=== PATIENT | female | born 1995 | race Caucasian/White ===

== ENCOUNTER 2016-09-02 10:33 | Day surgery (SDC) | payer OTHER ==
[2016-09-02 12:12] VITALS: BMI 30.2
[2016-09-02] MEDS ORDERED: PROPOFOL 20 ML ONE (13:00)
[2016-09-02] MEDS ORDERED: LIDOCAINE HCL 2% (20ML MULTI-DOSE VIAL) NR ONE (13:00)
[2016-09-02 13:37] VITALS: TEMP 97.6
[2016-09-02 15:05] VITALS: BP 123/66; PULSE 82
--- NOTE | 2016-09-03 13:53 | PATH ---
Surgical Pathology Report Patient Name: AJAY DUMONT [facility]. Rec. #: [id number] /Age/Gender: 1995 (Age: 21) / F Account: [id number] Location: [facility]-ENDOSCOPY Taken: 09/02/2016 Received: 09/02/2016 Reported: 09/03/2016 Physicians: Natanael Crawford M.D. Specimen(s) Received A: BX DUODENUM B: BX PYLORIC ULCER C: BX BODY ERYTHEMA D: BX GE JUNCTION Clinical History Epigastric pain Gastric ulcer, irregular Z-line, r/o celiac Final Diagnosis A. DUODENUM, BIOPSY: DUODENAL MUCOSA WITH CHRONIC INFLAMMATION AND FOCAL DIMPLE'S GLANDS HYPERPLASIA. NO HISTOLOGIC EVIDENCE OF GLUTEN SENSITIVE ENTEROPATHY (CELIAC DISEASE). B. STOMACH, PYLORIC ULCER, BIOPSY: GASTRIC ANTRAL MUCOSA WITH MODERATE CHRONIC GASTRITIS AND REACTIVE GASTROPATHY WITH FOVEOLAR HYPERPLASIA AND FOCAL EROSION WITH ASSOCIATED ACTIVE INFLAMMATION. IMMUNOSTAIN FOR H. PYLORI IS NEGATIVE FOR ORGANISMS. C. STOMACH, BODY, ERYTHEMA, BIOPSY: GASTRIC OXYNTIC MUCOSA WITH MILD TO MODERATE CHRONIC GASTRITIS. IMMUNOSTAIN FOR H. PYLORI IS NEGATIVE FOR ORGANISMS. D. GE JUNCTION, IRREGULAR Z-LINE, BIOPSY: SQUAMOCOLUMNAR JUNCTIONAL MUCOSA WITH FOCAL ACTIVE AND CHRONIC INFLAMMATION AND REFLUX TYPE CHANGES. NO INTESTINAL METAPLASIA (CAMACHO'S ESOPHAGUS) IDENTIFIED. Electronically Signed Guillaume Mancera M.D. Gross Description A. Received in formalin, labeled "biopsy duodenum" are 2 patel, irregular portions of soft tissue measuring 0.3 and 0.8 cm in greatest dimension. The specimens are submitted in toto in one cassette. B. Received in formalin, labeled "biopsy pyloric ulcer" is a patel, irregular portion of soft tissue measuring 0.3 cm in greatest dimension. The specimen is submitted in toto in one cassette. C. Received in formalin, labeled "biopsy erythema body" are 2 patel, irregular portions of soft tissue measuring 0.2 and 0.6 cm in greatest dimension. The specimens are submitted in toto in one cassette. D. Received in formalin, labeled "biopsy GE junction" are 2 patel, irregular portions of soft tissue averaging 0.3 cm in greatest dimension. The specimens are submitted in toto in one cassette. /09/02/201609/02/2016
== END 2016-09-02 14:30 | disposition home or self-care (01) ==
LOC: JASU-ENDO 10:33
PROVIDERS: ATTEND Internal Medicine Gastroenterology
PROC: 0DB78ZX Excision of Stomach, Pylorus, Via Natural or Artificial Opening Endoscopic, Diagnostic (ICD-10-PCS; principal; 2016-09-02 11:30)
DX: K25.9 Gastric ulcer, unspecified as acute or chronic, without hemorrhage or perforation (principal)
CPT/HCPCS: 84703; 88305-TC; 88342-TC

== ENCOUNTER 2018-03-17 17:39 | Emergency (ER) | payer OTHER ==
--- NOTE | 2018-03-17 17:44 | PDOC ---
Rapid Medical Evaluation Time Seen by Provider: 03/17/18 17:42 Medical Evaluation: Allergies Allergy/AdvReac Type Severity Reaction Status Date / Time No Known Allergies Allergy Verified 09/01/16 14:26 03/17/18 17:42 I have performed a brief in-person evaluation of this patient. The patient presents with a chief complaint of: Spotting and 8wks. LMP- "sometime in December I think." Pertinent physical exam findings: Abd SNTND. I have ordered the following: labs, urine, TVUS The patient will proceed to the ED for further evaluation. Discharge Disposition - Diagnosis Vaginal bleeding affecting early - Referrals - Patient Instructions - Post Discharge Activity
[2018-03-17 17:45] VITALS: BP 109/71; PULSE 87; TEMP 98.8; BMI 29.2
[2018-03-17 17:59] LABS: BASO % 0.6 % (0-2.0); EOS % 0.7 % (0-4.5); HEMATOCRIT 37.8 % (32.4-45.2); HEMOGLOBIN 13.2 GM/dL (10.7-15.3); LYMPH % 22.2 % (8-40); MCH 31.6 pg (25.7-33.7); MEAN CELL VOLUME 90.5 fl (80-96); MEAN PLT VOLUME 7.9 fl (7.5-11.1); MONO % 8.2 % (3.8-10.2); NEUT % 68.3 % (42.8-82.8); PLATELET COUNT 289 K/MM3 (134-434); RBC 4.17 M/mm3 (3.60-5.2); RDW 13.5 % (11.6-15.6); WHITE BLOOD COUNT 9.9 K/mm3 (4.0-10.0)
--- NOTE | 2018-03-17 18:48 | PDOC ---
History of Present Illness - General Chief Complaint: Vaginal Bleeding Stated Complaint: VAGINAL BLEEDING/8 WKS Time Seen by Provider: 03/17/18 17:42 - History of Present Illness Initial Comments: Marquita Valdez is an otherwise healthy 22yo woman, currently 8wks by US ([facility]) who presents with low abdominal cramping and vaginal spotting that started around 4:30pm today. She reports that she started having low abdominal pain and low back cramping on Thursday, 4 days ago. She was evaluated at [facility], including a transvaginal ultrasound, and she was told everything was fine at that time. Ms Valdez reports that she had continued low abdominal and low back cramping throughout the week. This afternoon around 4:30-5pm, she noticed some blood on the tissue when she used the bathroom. She states that it was a very small amount of blood, not enough to soak a pad, but she was concerned and presented for evaluation. She has an OB appointment scheduled for 03/26/18 but has not seen anyone yet. Ms Valdez denies any recent fevers, chills, change in her abdominal/back cramping , SOB, chest pain, dysuria, urinary frequency, or other symptoms. Past History - Past Medical History Allergies/Adverse Reactions: Allergies Allergy/AdvReac Type Severity Reaction Status Date / Time No Known Allergies Allergy Verified 03/17/18 17:45 Home Medications: Ambulatory Orders Omeprazole 40 mg PO DAILY #0 capsule. 09/02/16 Anemia: No Asthma: No Cancer: No Cardiac Disorders: No CVA: No COPD: No CHF: No Dementia: No Diabetes: No GI Disorders: No Disorders: No HTN: No Hypercholesterolemia: No Liver Disease: No Seizures: No Thyroid Disease: No - Surgical History Abdominal Surgery: No Appendectomy: No Cardiac Surgery: No Cholecystectomy: No Lung Surgery: No Neurologic Surgery: No Orthopedic Surgery: No - Suicide/Smoking/Psychosocial Hx Smoking History: Never smoked Have you smoked in the past 12 months: No Information on smoking cessation initiated: No Hx Alcohol Use: No Drug/Substance Use Hx: No Substance Use Type: None Review of Systems - Review of Systems Comments:: General: No fevers, no chills, no weight or appetite change, no malaise HEENT: No changes in vision, no changes in hearing, no congestion, no sore throat CV: No chest pain, no palpitations, no LE edema Pulm: No SOB, no cough, no wheezing GI: No nausea or vomiting, no change in bowel habits, no melena : No frequency, no urgency, no dysuria Musc: No back pain, no joint swelling, no recent injury Skin: No rash, no lesions, no erythema Endo: No excessive thirst, no heat/cold intolerance Heme: No unusual bruising or bleeding, no swollen glands Neuro: No syncope, no numbness/tingling, no focal weakness Vasc: No claudication Psych: No recent change in mood, no SI or HI *Physical Exam - Vital Signs Last Vital Signs Temp Pulse Resp BP Pulse Ox 98.8 F 87 17 109/71 100 03/17/18 17:42 03/17/18 17:42 03/17/18 17:42 03/17/18 17:42 03/17/18 17:42 - Physical Exam Comments: General: Comfortable, no acute distress HEENT: PERRL, EOMI, MMM, voice normal, normal neck ROM, no LAD Cards: RRR, no murmur appreciated Pulm: Comfortable on room air, clear to auscultation bilaterally Abd: Soft, nontender, non-distended, gravid : No CVA tenderness Vaginal: Normal external genitalia. Moderate white discharge with scant blood noted in vaginal canal. Normal color, no lesions or abrasions. No cervical motion tenderness. Os closed to palpation. Ext: Atraumatic. No LE edema. ROM intact. Strength 5/5 and equal bilaterally Vasc: Extremities WWP. Skin: Normal color, no rashes or lesions Neuro: A&Ox3, CN grossly intact, normal speech, motor/sensory grossly intact and symmetric Psych: Mood appropriate to situation ED Treatment Course - LABORATORY CBC & Chemistry Diagram: 03/17/18 17:53 03/17/18 17:53 - ADDITIONAL ORDERS Additional order review: 03/17/18 17:53 RBC 4.17 MCV 90.5 MCHC 35.0 RDW 13.5 MPV 7.9 Neutrophils % 68.3 Lymphocytes % 22.2 Monocytes % 8.2 Eosinophils % 0.7 Basophils % 0.6 Medical Decision Making - Medical Decision Making 03/17/18 19:04 Marquita Valdez is an otherwise healthy 22yo woman at 8wks who presents with low abdominal/back cramping since Thursday and vaginal spotting that started this afternoon. - Reassuring physical exam with closed os and minimal blood - Previous workup at [place] also reassuring as pain and cramping have not changed throughout the week - CBC, CMP, bHCG ordered in [facility]. - CBC and chemistry unremarkable - HCG 53561 - Type and screen ordered - Transvaginal US ordered in [facility], needs to be completed. 03/17/18 19:20 - UA with +leuk esteras, +blood but no UTI - US completed. Single live IUP, 8w1d gestational age, FHR 179 - Type and screen pending. Once resulted will D/C home. Patient signed out to Dr Gibson for remainder of care. Zina Patel PGY1 *DC/Admit/Observation/Transfer Diagnosis at time of Disposition: Vaginal bleeding affecting early - Discharge Dispostion Condition at time of disposition: Stable - Referrals Referrals: Eleno Salazar MD [Primary Care Provider] - Jose Cruz Fitzpatrick MD [Staff Physician] - - Patient Instructions Printed Discharge Instructions: DI for -- Discomforts and Remedies, DI for Vaginal Bleeding During Additional Instructions: Discharge Instructions: You were seen in the ED for vaginal bleeding and abdominal/back pain during your . You had blood tests that showed no abnormalities, and an ultrasound showed a normal at 8w1d weeks gestation. Your bHCG ( hormone) was measured at 49,000. The bleeding and cramps that you noticed are most likely a normal part of your . However, you should establish care with an animal care supervisor as soon as possible to ensure that your is progressing normally. If you need to set up care with OB, you have been referred to Dr Alvares. Please seek immediate medical care if you have severe vaginal bleeding, severe or sudden abdominal pain, chest pain, shortness of breath, or any medical emergency. - Post Discharge Activity
--- NOTE | 2018-03-17 18:52 | PDOC ---
Attending Attestation - HPI HPI: This patient is a 22 year old female who is 8 weeks (as confirmed by US at [facility]), who presents with vaginal bleeding and lower abdominal cramping,. She states that her lower abdominal cramping (radiates to back) began 4 days ago and was evaluated at [facility] in which everything was normal. She states that today she noted some vaginal spotting around 4:30 and was concerned so she came to the ER to be evaluated. She states that her abdominal pain has also persisted. 03/17/18 19:35 <Dorie Miguel - Last Filed: 03/17/18 19:35> - Resident Resident Name: Zina Patel - ED Attending Attestation I have performed the following: I have examined & evaluated the patient, The case was reviewed & discussed with the resident, I agree w/resident's findings & plan, Exceptions are as noted - Physicial Exam PE: GENERAL: Awake, alert, and fully oriented, in no acute distress HEAD: No signs of trauma EYES: PERRLA, EOMI, sclera anicteric, conjunctiva clear ENT: Auricles normal inspection, hearing grossly normal, nares patent, oropharynx clear without exudates. Moist mucosa NECK: Normal ROM, supple, no lymphadenopathy, JVD, or masses LUNGS: Breath sounds equal, clear to auscultation bilaterally. No wheezes, and no crackles HEART: Regular rate and rhythm, normal S1 and S2, no murmurs, rubs or gallops ABDOMEN: Soft, nontender, normoactive bowel sounds. No guarding, no rebound. No masses EXTREMITIES: Normal range of motion, no edema. No clubbing or cyanosis. No cords, erythema, or tenderness NEUROLOGICAL: Cranial nerves II through XII grossly intact. Normal speech, normal gait SKIN: Warm, Dry, normal turgor, no rashes or lesions noted. - Medical Decision Making Pt with first trimester spotting. Sono with viable IUP. Stable for DC home. <Elva Courtney - Last Filed: 03/17/18 20:44>
[2018-03-17 18:57] LABS: ANION GAP 10 MMOL/L (8-16); BLOOD UREA NITROGEN 8 mg/dL (7-18); CALCIUM 8.6 mg/dL (8.5-10.1); CHLORIDE 105 mmol/L (98-107); CO2 23 mmol/L (21-32); CREATININE 0.6 mg/dL (0.55-1.3); GLUCOSE,RANDOM 84 mg/dL (74-106); POTASSIUM 3.8 mmol/L (3.5-5.1); SODIUM 137 mmol/L (136-145)
[2018-03-17 19:15] LABS: URINE APPEARANCE CLEAR; URINE BILIRUBIN NEGATIVE (<2.0 mg/dL); URINE COLOR STRAW; URINE GLUCOSE (UA) NEGATIVE (NEGATIVE); URINE KETONE NEGATIVE (NEGATIVE); URINE LEUK ESTERASE 1+ (NEGATIVE); URINE NITRITE NEGATIVE (NEGATIVE); URINE PROTEIN NEGATIVE (NEGATIVE); URINE UROBILINOGEN NEGATIVE mg/dL (0.2-1.0)
[2018-03-17 19:18] LABS: EPI CELLS RARE /HPF (FEW)
--- NOTE | 2018-03-17 21:31 | PDOC ---
*Physical Exam - Vital Signs Last Vital Signs Temp Pulse Resp BP Pulse Ox 98.8 F 87 17 109/71 100 03/17/18 17:42 03/17/18 17:42 03/17/18 17:42 03/17/18 17:42 03/17/18 17:42 ED Treatment Course - LABORATORY CBC & Chemistry Diagram: 03/17/18 17:53 03/17/18 17:53 - ADDITIONAL ORDERS Additional order review: Laboratory Results 03/17/18 03/17/18 03/17/18 20:25 19:05 17:53 Sodium 137 Potassium 3.8 Chloride 105 Carbon Dioxide 23 Anion Gap 10 BUN 8 Creatinine 0.6 Creat Clearance w eGFR > 60 Random Glucose 84 Calcium 8.6 Beta HCG, Quant 36638.3 Urine Color Straw Urine Appearance Clear Urine pH 6.0 Ur Specific [place] 1.010 Urine Protein Negative Urine Glucose (UA) Negative Urine Ketones Negative Urine Blood 2+ H Urine Nitrite Negative Urine Bilirubin Negative Urine Urobilinogen Negative Ur Leukocyte Esterase 1+ H Urine WBC (Auto) 1 Urine RBC (Auto) 1 Ur Epithelial Cells Rare Blood Type O POSITIVE Antibody Screen Negative 03/17/18 17:53 RBC 4.17 MCV 90.5 MCHC 35.0 RDW 13.5 MPV 7.9 Neutrophils % 68.3 Lymphocytes % 22.2 Monocytes % 8.2 Eosinophils % 0.7 Basophils % 0.6 Medical Decision Making - Medical Decision Making Sign out from Dr. Patel Marquita Vladez is an otherwise healthy 22yo woman at 8wks who presents with low abdominal/back cramping since Thursday and vaginal spotting that started this afternoon. - Reassuring physical exam with closed os and minimal blood - Previous workup at [place] also reassuring as pain and cramping have not changed throughout the week - CBC, CMP, bHCG ordered in [facility]. - CBC and chemistry unremarkable - HCG [id number] - Type and screen ordered - Transvaginal US ordered in [facility], needs to be completed. 03/17/18 19:20 - UA with +leuk esteras, +blood but no UTI - US completed. Single live IUP, 8w1d gestational age, FHR 179 - Type and screen pending. Once resulted will D/C home. Results type an screen: O positive Will D/C home with discharge instructions from Dr. Patel *DC/Admit/Observation/Transfer Diagnosis at time of Disposition: Vaginal bleeding affecting early - Discharge Dispostion Disposition: HOME Condition at time of disposition: Stable - Referrals Referrals: Eleno Salazar MD [Primary Care Provider] - Jose Cruz Fitzpatrick MD [Staff Physician] - - Patient Instructions Printed Discharge Instructions: DI for -- Discomforts and Remedies, DI for Vaginal Bleeding During Additional Instructions: Discharge Instructions: You were seen in the ED for vaginal bleeding and abdominal/back pain during your . You had blood tests that showed no abnormalities, and an ultrasound showed a normal at 8w1d weeks gestation. Your bHCG ( hormone) was measured at 49,000. The bleeding and cramps that you noticed are most likely a normal part of your . However, you should establish care with an chief nursing executive as soon as possible to ensure that your is progressing normally. If you need to set up care with OB, you have been referred to Dr Alvares. Please seek immediate medical care if you have severe vaginal bleeding, severe or sudden abdominal pain, chest pain, shortness of breath, or any medical emergency. - Post Discharge Activity
== END 2018-03-17 22:17 | disposition home or self-care (01) ==
LOC: JER 17:39
DX: O26.891 Other specified pregnancy related conditions, first trimester (principal); O20.8 Other hemorrhage in early pregnancy; Z3A.08 8 weeks gestation of pregnancy
CPT/HCPCS: 36415; 76817-TC; 80048; 81003; 81015; 84702; 85025; 86850; 86900; 86901; 87086; 87491; 87591; 99283-25